=== PATIENT | female | born 1975 | race African-American/Black ===

== ENCOUNTER 2017-12-21 10:36 | Emergency (ER) | payer BC, SELFPAY ==
[2017-12-21] MEDS ORDERED: Ketorolac Tromethamine 60 MG/2 ML VIAL ONE (10:52)
--- NOTE | 2017-12-21 16:13 | RAD ---
LEFT HIP TWO VIEWS: 12/21/2017 FINDINGS: No fracture, dislocation, or joint space narrowing is seen. The adjacent pubic ring is intact. Ther e is probably a small calcified uterine fibroid in the pelvis. The rotated view shows a tiny camryn o f bone above the greater trochanter that is more likely due to old trauma or tendinitis than acute. IMPRESSION: No acute finding. POS: HOME
== END 2017-12-21 11:28 | disposition home or self-care (01) ==
LOC: BURERS 10:36
DX: S70.02XA Contusion of left hip, initial encounter (principal); W10.9XXA Fall (on) (from) unspecified stairs and steps, initial encounter
CPT/HCPCS: 96372; J1885

== ENCOUNTER 2018-02-01 19:56 | Emergency (ER) | payer BC ==
[2018-02-01] MEDS ORDERED: Oxymetazoline HCl 0.05% ( 15 ML ) ONE (20:08)
[2018-02-01] MEDS ORDERED: Ibuprofen 200 MG TAB ONE (20:10)
== END 2018-02-01 20:14 | disposition home or self-care (01) ==
LOC: BURERS 19:56
DX: J01.90 Acute sinusitis, unspecified (principal); F17.210 Nicotine dependence, cigarettes, uncomplicated
CPT/HCPCS: 99282

== ENCOUNTER 2018-06-04 17:11 | Emergency (ER) | payer BC ==
[2018-06-04 18:06] LABS: Hemoglobin 6.5 g/dL (12.0-16.0); Mean Corpuscular HGB CONC 30.3 g/dL (32.0-36.0); Mean Corpuscular Hemoglobin 18.2 pg (27.0-31.0); Mean Corpuscular Volume 59.9 fL (78.0-98.0); Mean Platelet Volume 6.2 fL (7.4-10.4); Platelet Count 162 thou/uL (130-400); RBC Distribution Width 18.5 % (11.5-14.5); Red Blood Cell (RBC) Count 3.58 mill/uL (4.20-5.40); White Blood Cell (WBC) Count 7.7 thou/uL (4.8-10.8)
[2018-06-04 18:23] LABS: #Basophils 0.1 thou/uL (0.0-0.2); #Eosinphils 0.2 thou/uL (0.0-0.7); #Lymphocytes 1.6 thou/uL (1.20-3.40); #Monocytes 0.4 thou/uL (0.11-0.59); #Neutrophils 5.3 thou/uL (1.40-6.50); %Basophils 1.4 % (0.0-1.0); %Lymphocytes 20.8 % (21.0-51.0); %Monocytes 5.4 % (0.0-10.0); %Neutrophils 69.4 % (42.0-75.0); Basophilic Stippling SLIGHT = 1-2 cells (100X) (None Seen); Hypochromia MARKED = >30 cells (100X) (0-5/hpf); MDiff Complete? YES; Macrocytosis MODERATE=16-30 cells (100X) (0-5/hpf); Microcytosis MARKED = >30 cells (100X) (0-5/hpf); Reflex for Review?? NO
== END 2018-06-04 18:32 | disposition home or self-care (01) ==
LOC: BURERS 17:11
DX: N93.8 Other specified abnormal uterine and vaginal bleeding (principal); D64.9 Anemia, unspecified; F17.210 Nicotine dependence, cigarettes, uncomplicated
CPT/HCPCS: 36415; 85025; 87480; 87491; 87510; 87591; 87660; 99284

== ENCOUNTER 2018-06-10 13:50 | Emergency (ER) | payer BC ==
[2018-06-10 14:14] LABS: Hemoglobin 7.1 g/dL (12.0-16.0); Mean Corpuscular HGB CONC 30.4 g/dL (32.0-36.0); Mean Corpuscular Hemoglobin 18.2 pg (27.0-31.0); Platelet Count 233 thou/uL (130-400); RBC Distribution Width 18.6 % (11.5-14.5); White Blood Cell (WBC) Count 6.9 thou/uL (4.8-10.8)
[2018-06-10] MEDS ORDERED: traMADol HCl 50 MG TAB ONE (14:15)
[2018-06-10] MEDS ORDERED: Ibuprofen 800 MG TAB ONE (14:16)
[2018-06-10 14:27] LABS: Clarity Cloudy (Clear); Specific Gravity, Urine 1.021 (1.005-1.030)
[2018-06-10 14:28] LABS: Bilirubin Negative (Negative); Blood, Urine Trace (Negative); Glucose, Urine (Dipstick) Negative (Negative); Leukocyte Moderate (Negative); Nitrite Negative (Negative); Protein, Urine (Dipstick) Negative (Neg-Trace); RBC/HPF 0-3 HPF (0-3); Urobilinogen 0.2 mg/dL (0.2-1.0); pH, Urine 5.5 (5.0-9.0)
[2018-06-10 14:29] LABS: Bacteria/HPF 3+ HPF (None Seen); Trichomonas/HPF 2+ HPF (None Seen)
[2018-06-10 14:32] LABS: #Basophils 0.1 thou/uL (0.0-0.2); #Eosinphils 0.2 thou/uL (0.0-0.7); #Lymphocytes 1.5 thou/uL (1.20-3.40); #Monocytes 0.4 thou/uL (0.11-0.59); #Neutrophils 4.8 thou/uL (1.40-6.50); %Basophils 1.1 % (0.0-1.0); %Eosinophils 2.8 % (0.0-10.0); %Lymphocytes 21.1 % (21.0-51.0); %Monocytes 5.5 % (0.0-10.0); %Neutrophils 69.4 % (42.0-75.0); Hypochromia MARKED = >30 cells (100X) (0-5/hpf); MDiff Complete? YES; Macrocytosis SLIGHT = 6-15 cells (100X) (0-5/hpf); Microcytosis MARKED = >30 cells (100X) (0-5/hpf); Stomatocytes SLIGHT = 2-5 cells (100X) (0-1/hpf)
[2018-06-10] MEDS ORDERED: cefTRIAXone\\ROCEPHIN 500 MG VIAL ONE (14:40)
[2018-06-10] MEDS ORDERED: Azithromycin 250 MG TAB ONE (14:40)
== END 2018-06-10 14:55 | disposition home or self-care (01) ==
LOC: BURERS 13:50
DX: A59.01 Trichomonal vulvovaginitis (principal); D64.9 Anemia, unspecified; N73.9 Female pelvic inflammatory disease, unspecified; N39.0 Urinary tract infection, site not specified; F17.210 Nicotine dependence, cigarettes, uncomplicated
CPT/HCPCS: 36415; 81003; 81015; 85025; 87491; 87591; 99283; J0696

== ENCOUNTER 2018-07-18 04:57 | Emergency (ER) | payer BC ==
[2018-07-18 06:34] LABS: Clarity Slightly Cloudy (Clear); Glucose, Urine (Dipstick) Negative (Negative); Leukocyte Small (Negative); Nitrite Negative (Negative); Protein, Urine (Dipstick) Negative (Neg-Trace); pH, Urine 5.5 (5.0-9.0)
[2018-07-18 06:35] LABS: Bilirubin Negative (Negative); Blood, Urine Moderate (Negative); Urobilinogen 0.2 mg/dL (0.2-1.0)
[2018-07-18 06:37] LABS: Bacteria/HPF 3+ HPF (None Seen); RBC/HPF 0-3 HPF (0-3); Squamous Epithelial 0-3 HPF (0-3)
[2018-07-18] MEDS ORDERED: HYDROcodone/Acetaminophen 10/325 mg Tablet ONE (06:45)
[2018-07-18] MEDS ORDERED: Phenazopyridine HCl 97.5 MG TABLET ONE (06:46)
[2018-07-18] MEDS ORDERED: Sulfameth/Trimethoprim DS 800-160mg TAB ONE (06:46)
[2018-07-21 00:56] LABS: Chlamydia by PCR Not Detected (NotDetected); GC by PCR Not Detected (NotDetected)
== END 2018-07-18 06:57 | disposition home or self-care (01) ==
LOC: BURERS 04:57
DX: N39.0 Urinary tract infection, site not specified (principal); F17.210 Nicotine dependence, cigarettes, uncomplicated
CPT/HCPCS: 81003; 81015; 87086; 87491; 87591; 99284

== ENCOUNTER 2019-12-29 07:38 | Emergency (ER) | payer SELFPAY ==
[2019-12-29] MEDS ORDERED: Ketorolac Tromethamine 60 MG/2 ML VIAL ONE (08:08)
== END 2019-12-29 08:05 | disposition home or self-care (01) ==
LOC: BURERS 07:38
DX: M54.16 Radiculopathy, lumbar region (principal); F17.210 Nicotine dependence, cigarettes, uncomplicated
CPT/HCPCS: 96372; 99283; J1885

== ENCOUNTER 2020-09-18 19:22 | Observation (INO) | payer SELFPAY ==
[2020-09-18 20:19] LABS: Mean Corpuscular HGB CONC 33.9 g/dL (32.0-36.0); Mean Corpuscular Volume 82.7 fL (78.0-98.0); Mean Platelet Volume 9.6 fL (7.4-10.4); Platelet Count 179 thou/uL (130-400); RBC Distribution Width 12.9 % (11.5-14.5); Red Blood Cell (RBC) Count 4.63 mill/uL (4.20-5.40); White Blood Cell (WBC) Count 9.4 thou/uL (4.8-10.8)
[2020-09-18 20:32] LABS: ALT (SGPT) 28 U/L (8-55); AST (SGOT) 20 U/L (5-34); Albumin 3.8 g/dL (3.5-5.0); Alkaline Phosphatase 188 U/L (40-110); Anion Gap 15 mmol/L (10-20); BUN (Urea Nitrogen) 6 mg/dL (7.0-18.7); Bilirubin, Total 0.2 mg/dL (0.2-1.2); Calc. Creatinine Clearance 0 mL/min (70-130); Calcium 9.5 mg/dL (7.8-10.44); Carbon Dioxide 23 mmol/L (22-29); Chloride 108 mmol/L (98-107); Globulin 3.1 g/dL (2.4-3.5); Glucose 117 mg/dL (70-105); Potassium 3.4 mmol/L (3.5-5.1); Protein, Total 6.9 g/dL (6.0-8.3); Sodium 143 mmol/L (136-145)
[2020-09-18 20:47] LABS: BHCG - Serum Negative (NEGATIVE); Thyroid Stimulating Hormone Less than 0.0025 uIU/mL (0.35-4.94)
[2020-09-18 20:48] LABS: Pregs Control Background? CLEAR/WHITE (CLR/WHITE); Pregs Control Bar Appear? YES (CONTROL BAR)
[2020-09-18 21:00] LABS: Band 1 % (5-11); Eosinophils 2 % (0-10); Lymphocytes 31 % (21-51); MDiff Complete? YES; Metamyelocyte 1 % (0-0); Monocytes 7 % (0-10); Neutrophil 57 % (42-75); Platelet Morphology Comment Appears Adequate; RBC Morphology Normal
[2020-09-18] MEDS ORDERED: Atenolol 50 MG TAB ONE (22:27)
[2020-09-18] MEDS ORDERED: Acetaminophen 500 MG TAB ONE (22:27)
[2020-09-19 00:10] VITALS: BMI 36.0
[2020-09-19] MEDS ORDERED: Ondansetron PF 4 MG/2 ML Vial IVP PRN (00:30)
[2020-09-19] MEDS ORDERED: Acetaminophen 325 MG TAB PO PRN (00:30)
[2020-09-19] MEDS ORDERED: Ondansetron ODT 4 MG TAB SL PRN (00:30)
[2020-09-19 00:40] LABS: SARS-CoV-2 NAA Rapid Test Not Detected (NotDetected)
[2020-09-19] MEDS: Lisinopril 20 MG TAB PO SCH (09:41)
[2020-09-19 12:02] LABS: Free T4 (Free Thyroxine) 1.84 ng/dL (0.70-1.48)
[2020-09-19] MEDS ORDERED: Atenolol 50 MG TAB PO SCH (13:00)
[2020-09-20] MEDS ORDERED: hydrOXYzine 25 MG TAB PO PRN ×2 (08:03→08:36)
[2020-09-20] MEDS ORDERED: Atenolol 50 MG TAB PO SCH (09:00)
[2020-09-20] MEDS: Lisinopril 20 MG TAB PO SCH (09:13)
[2020-09-20] MEDS ORDERED: cloNIDine 0.1 MG TAB PO PRN (12:37)
[2020-09-20] MEDS ORDERED: Hydrochlorothiazide 25 MG TAB PO SCH (12:45)
[2020-09-20] MEDS ORDERED: Amlodipine 5 MG TAB PO SCH (12:45)
[2020-09-20] MEDS ORDERED: Methimazole 5 MG TAB PO SCH (12:55)
[2020-09-20 17:08] VITALS: BP 156/86; TEMP 98.4
[2020-09-21] MEDS ORDERED: Amlodipine 5 MG TAB PO SCH (09:00)
[2020-09-21] MEDS ORDERED: Hydrochlorothiazide 25 MG TAB PO SCH ×2 (09:00→12:25)
== END 2020-09-20 18:35 | disposition home or self-care (01) ==
LOC: BURERS 19:22 → BURMED 23:23
PROVIDERS: ADMIT Family Medicine; ATTEND Family Medicine
DX: I15.2 Hypertension secondary to endocrine disorders (principal); E05.90 Thyrotoxicosis, unspecified without thyrotoxic crisis or storm; F17.210 Nicotine dependence, cigarettes, uncomplicated; Z79.899 Other long term (current) drug therapy; Z20.822 Contact with and (suspected) exposure to COVID-19
CPT/HCPCS: 0241U; 80053; 84439; 84443; 84479; 84481; 84703; 85025; 93005; G0378

== ENCOUNTER 2021-03-15 19:52 | Emergency (ER) | payer SELFPAY ==
[2021-03-16 01:42] LABS: SARS-CoV-2 PCR by NAA Not Detected (NotDetected)
== END 2021-03-15 20:54 | disposition home or self-care (01) ==
LOC: BURERS 19:52
DX: R51.9 Headache, unspecified (principal); J34.89 Other specified disorders of nose and nasal sinuses; R05.9 Cough, unspecified; R09.81 Nasal congestion; R43.8 Other disturbances of smell and taste; Z20.822 Contact with and (suspected) exposure to COVID-19; E05.90 Thyrotoxicosis, unspecified without thyrotoxic crisis or storm; I10 Essential (primary) hypertension; F17.210 Nicotine dependence, cigarettes, uncomplicated; Z79.899 Other long term (current) drug therapy
CPT/HCPCS: 99284; U0003; U0005

== ENCOUNTER 2021-07-28 11:09 | Emergency (ER) | payer BC, SELFPAY ==
[2021-07-28] MEDS ORDERED: Aspirin Chewable 81 MG TAB ONE ×2 (11:48→11:49)
[2021-07-28 11:50] LABS: Hemoglobin 14.6 g/dL (12.0-16.0); Mean Corpuscular Hemoglobin 29.6 pg (27.0-31.0); Mean Corpuscular Volume 89.7 fL (78.0-98.0); Mean Platelet Volume 10.3 fL (7.4-10.4); Platelet Count 209 thou/uL (130-400); RBC Distribution Width 14.1 % (11.5-14.5); Red Blood Cell (RBC) Count 4.92 mill/uL (4.20-5.40); White Blood Cell (WBC) Count 7.2 thou/uL (4.8-10.8)
[2021-07-28 12:02] LABS: ALT (SGPT) 13 U/L (8-55); AST (SGOT) 14 U/L (5-34); Albumin 4.4 g/dL (3.5-5.0); Alkaline Phosphatase 174 U/L (40-110); Anion Gap 14 mmol/L (10-20); BUN (Urea Nitrogen) 9 mg/dL (7.0-18.7); Bilirubin, Total 0.3 mg/dL (0.2-1.2); Calc. Creatinine Clearance 0 mL/min (70-130); Calcium 9.6 mg/dL (7.8-10.44); Carbon Dioxide 25 mmol/L (22-29); Chloride 107 mmol/L (98-107); Globulin 3.6 g/dL (2.4-3.5); Glucose 77 mg/dL (70-105); Lipase 10 U/L (8-78); Potassium 3.9 mmol/L (3.5-5.1); Sodium 142 mmol/L (136-145)
[2021-07-28 12:08] LABS: Lymphocytes 51 % (21-51); Manual Diff?? YES; Neutrophil 47 % (42-75)
[2021-07-28 12:09] LABS: Eosinophils 2 % (0-10)
[2021-07-28 12:20] LABS: MDiff Complete? YES
[2021-07-28 13:50] LABS: Troponin I Less than 0.010 ng/mL (< 0.028)
== END 2021-07-28 14:16 | disposition home or self-care (01) ==
LOC: BURERS 11:09
DX: I20.9 Angina pectoris, unspecified (principal); I10 Essential (primary) hypertension; E05.90 Thyrotoxicosis, unspecified without thyrotoxic crisis or storm; F17.210 Nicotine dependence, cigarettes, uncomplicated; Z79.899 Other long term (current) drug therapy
CPT/HCPCS: 71045; 80053; 83690; 83880; 84484; 85025; 93005; 94760

== ENCOUNTER 2021-10-04 11:35 | Emergency (ER) | payer BC | END 2021-10-04 13:26 | disposition home or self-care (01) | LOC: BURERS 11:35 | DX: J18.1 Lobar pneumonia, unspecified organism (principal); I10 Essential (primary) hypertension; E03.9 Hypothyroidism, unspecified; F17.210 Nicotine dependence, cigarettes, uncomplicated; Z79.899 Other long term (current) drug therapy | CPT/HCPCS: 71046 ==

== ENCOUNTER 2023-06-12 19:09 | Emergency (ER) | payer BC ==
[2023-06-12] MEDS ORDERED: predniSONE 20 MG TAB ONE (19:24)
== END 2023-06-12 19:40 | disposition home or self-care (01) ==
LOC: BURERS 19:09
DX: T78.40XA Allergy, unspecified, initial encounter (principal); F17.210 Nicotine dependence, cigarettes, uncomplicated; I10 Essential (primary) hypertension; Z79.899 Other long term (current) drug therapy
CPT/HCPCS: 99283; J7512

== ENCOUNTER 2023-09-29 20:18 | Emergency (ER) | payer BC ==
[2023-09-29 22:00] LABS: Influenza A by NAA Not Detected (NotDetected); Influenza B by NAA Not Detected (NotDetected); SARS-CoV-2 NAA Rapid Test Not Detected (NotDetected)
[2023-09-29] MEDS ORDERED: Bicillin LA 1.2 MILLION UNITS/2 ML SYRINGE ONE (22:33)
[2023-09-29] MEDS ORDERED: Dexamethasone 10 MG/ML VIAL ONE (22:33)
== END 2023-09-29 23:12 | disposition home or self-care (01) ==
LOC: BURERS 20:18
DX: J02.0 Streptococcal pharyngitis (principal); I10 Essential (primary) hypertension; F17.210 Nicotine dependence, cigarettes, uncomplicated
CPT/HCPCS: 71045; 96372; J0561; J1100

== ENCOUNTER 2023-10-01 09:27 | Emergency (ER) | payer BC ==
[2023-10-01] MEDS ORDERED: AMOXicillin 250 MG CAP ONE (09:55)
== END 2023-10-01 09:58 | disposition home or self-care (01) ==
LOC: BURERS 09:27
DX: H66.92 Otitis media, unspecified, left ear (principal); H10.9 Unspecified conjunctivitis; I10 Essential (primary) hypertension; F17.210 Nicotine dependence, cigarettes, uncomplicated
CPT/HCPCS: 99282